=== PATIENT | female | born 1950 | race Caucasian/White ===

== ENCOUNTER 2021-09-21 14:40 | Outpatient (NON) | payer MEDICARE, OTHER, SELFPAY ==
[2021-09-21 14:57] LABS: Basophils Absolute Auto 0.04 K/mm3 (0.00-0.10); Basophils Percent Auto 0.5 % (0.0-1.0); Eosinophils Absolute Auto 0.27 K/mm3 (0.02-0.50); Eosinophils Percent Auto 3.4 % (1.0-6.0); Hematocrit 25.9 % (35.0-42.0); Hemoglobin 7.8 g/dL (11.7-13.8); Immature Granulocyte Absolute 0.02 K/mm3 (0.00-0.00); Immature Granulocyte Percent A 0.3 % (0.0-0.0); Lymphocytes Percent Auto 19.1 % (18.0-42.0); Mean Corpuscular HGB Conc 30.1 g/dL (32.0-36.0); Mean Corpuscular Hemoglobin 26.8 pg (27.0-31.0); Mean Platelet Volume 12.1 fl (9.2-11.8); Monocytes Percent Auto 7.6 % (2.0-11.0); Neutrophils Absolute Auto 5.4 K/mm3 (1.7-7.2); Neutrophils Percent Auto 69.1 % (50.0-70.0); Platelet Count Result 461 K/mm3 (150-420); Red Blood Count 2.91 M/mm3 (4.20-5.40); Red Cell Distribution Width 21.9 % (11.6-14.4); White Blood Count 7.9 K/mm3 (4.8-10.8)
[2021-09-21 15:14] LABS: Iron 57 ug/dL (50-170); Percent Iron Saturation 20 % (12-57)
== END 2021-09-21 14:41 | disposition home or self-care (01) ==
LOC: CHSLAB 14:44
PROVIDERS: Visit Provider Family Medicine
DX: R31.9 Hematuria, unspecified (principal); B82.9 Intestinal parasitism, unspecified; Z79.899 Other long term (current) drug therapy
CPT/HCPCS: 83540; 83550; 85025; 87177; 87209

== ENCOUNTER 2022-05-05 15:25 | Outpatient (NON) | payer MEDICARE, OTHER, SELFPAY ==
[2022-05-05 15:50] LABS: Basophils Absolute Auto 0.03 K/mm3 (0.00-0.10); Basophils Percent Auto 0.4 % (0.0-1.0); Eosinophils Absolute Auto 0.19 K/mm3 (0.02-0.50); Eosinophils Percent Auto 2.7 % (1.0-6.0); Hematocrit 25.3 % (35.0-42.0); Hemoglobin 7.1 g/dL (11.7-13.8); Immature Granulocyte Absolute 0.03 K/mm3 (0.00-0.00); Immature Granulocyte Percent A 0.4 % (0.0-0.0); Immature Platelet Fraction Pct 2.8 % (1.0-7.0); Lymphocytes Absolute Auto 1.89 K/mm3 (1.10-4.50); Lymphocytes Percent Auto 26.8 % (18.0-42.0); Mean Corpuscular HGB Conc 28.1 g/dL (32.0-36.0); Mean Corpuscular Hemoglobin 26.6 pg (27.0-31.0); Mean Corpuscular Volume 94.8 fL (78.0-102.0); Mean Platelet Volume 10.7 fl (9.2-11.8); Monocytes Absolute Auto 0.81 K/mm3 (0.10-0.90); Monocytes Percent Auto 11.5 % (2.0-11.0); Neutrophils Absolute Auto 4.1 K/mm3 (1.7-7.2); Neutrophils Percent Auto 58.2 % (50.0-70.0); Nucleated Red Blood Cells Absolute Auto 0.06 K/mm3 (0.00-0.00); Nucleated Red Blood Cells Perc 0.9 % (0-0.0); Platelet Count Result 531 K/mm3 (150-420); Red Blood Count 2.67 M/mm3 (4.20-5.40); Red Cell Distribution Width 19.1 % (11.6-14.4); White Blood Count 7.1 K/mm3 (4.8-10.8)
[2022-05-05 15:59] LABS: Alanine Aminotransferase 11 U/L (14-59); Albumin Level 3.2 g/dL (3.4-5.0); Alkaline Phosphatase 104 U/L (46-116); Anion Gap 9 mmol/L (8-16); Aspartate Amino Transferase < 10 U/L (15-37); Bilirubin,Total 0.2 mg/dL (0.00-1.00); Blood Urea Nitrogen 25 mg/dL (7-18); Calcium 8.5 mg/dL (8.5-10.1); Carbon Dioxide 24 mmol/L (21-32); Chloride 108 mmol/L (98-108); Estimated Glomerular Filt Rate 55; Iron 15 ug/dL (50-170); Percent Iron Saturation 4 % (12-57); Potassium 4.5 mmol/L (3.5-5.1); Sodium 141 mmol/L (136-145); Total Protein 6.2 g/dL (6.4-8.2)
[2022-05-05 16:11] LABS: Glucose 143 mg/dL (70-99); Osmolality Calculated 298 mOsm/kg (285-295)
[2022-05-08 19:57] LABS: Tacrolimus Prograf 7.9 mcg/L
== END 2022-05-05 15:26 | disposition home or self-care (01) ==
LOC: CHSLAB 15:30
DX: Z94.0 Kidney transplant status (principal); D64.9 Anemia, unspecified
CPT/HCPCS: 36415; 80053; 80197; 83540; 83550; 85025; 85055